=== PATIENT | male | born 1990 | race Caucasian/White ===

== ENCOUNTER 2021-05-21 05:34 | Emergency (ER) | payer SELFPAY ==
[~2021-05-21] VITALS: Ht 172.7 cm; Wt 63.5 kg
[2021-05-21] MEDS ORDERED: ONDANSETRON 4 MG TAB.RAPDIS ONE (06:00)
[2021-05-21] MEDS ORDERED: ONDANSETRON 4 MG TAB.RAPDIS SL ONE (06:00)
[2021-05-21] MEDS ORDERED: LIDOCAINE VISCOUS 2% UD 15 ML UDC MM ONE (06:30)
[2021-05-21] MEDS ORDERED: PANTOPRAZOLE 40 MG VIAL IV ONE (06:30)
[2021-05-21] MEDS ORDERED: MAG HYDROX/AL HYDROX/SIMETH 30 ML UDC PO ONE (06:30)
[2021-05-21] MEDS ORDERED: METOCLOPRAMIDE HCL 10 MG/2 ML VIAL IV ONE (06:30)
[2021-05-21] MEDS ORDERED: DICYCLOMINE HCL INJ 20 MG/2 ML AMPUL IM ONE ×2 (06:30→06:35)
[2021-05-21] MEDS ORDERED: diphenhydrAMINE HCL 50 MG/ML VIAL IV ONE (06:30)
[2021-05-21] MEDS ORDERED: IV NS 0.9% 1,000 ML BAG IV ONE (06:30)
[2021-05-21] MEDS ORDERED: diphenhydrAMINE HCL 50 MG/ML VIAL ONE (06:35)
[2021-05-21] MEDS ORDERED: PANTOPRAZOLE 40 MG VIAL ONE (06:35)
[2021-05-21] MEDS ORDERED: METOCLOPRAMIDE HCL 10 MG/2 ML VIAL ONE (06:35)
[2021-05-21] MEDS ORDERED: LIDOCAINE VISCOUS 2% UD 15 ML UDC ONE (06:35)
[2021-05-21] MEDS ORDERED: MAG HYDROX/AL HYDROX/SIMETH 30 ML UDC ONE (06:35)
[2021-05-21 06:38] LABS: BASOPHILS % (AUTO) 0.1 % (0.0-2.0); HEMATOCRIT 41 % (39-51); LYMPHOCYTES # (AUTO) 0.9 K/uL (0.8-4.8); LYMPHOCYTES % (AUTO) 14.6 % (20.0-44.0); MEAN CORPUSCULAR HGB CONC 34 g/dl (31.0-36.0); MEAN CORPUSCULAR VOLUME 87 fL (80-96); MONOCYTES # (AUTO) 0.8 K/uL (0.1-1.30); MONOCYTES % (AUTO) 12.7 % (2.0-12.0); NEUTROPHILS # (AUTO) 4.5 K/uL (1.8-8.9); NEUTROPHILS % (AUTO) 72.6 % (43.0-81.0); PLATELET COUNT (AUTO) 157 K/uL (150-450); RED BLOOD CELL COUNT(AUTO) 4.74 MIL/uL (4.5-6.0); WHITE BLOOD COUNT (AUTO) 6.2 K/uL (4.3-11.0)
[2021-05-21 07:10] LABS: BILIRUBIN,DIRECT 0.2 mg/dL (0.0-0.2); BILIRUBIN,TOTAL 0.6 mg/dL (0.2-1.0); CALCIUM, SERUM 8.7 mg/dL (8.5-10.1); CREATININE 1.1 mg/dL (0.6-1.3); POTASSIUM 3.3 mmol/L (3.5-5.1); TOTAL PROTEIN, SERUM 7.3 g/dL (6.4-8.2)
--- NOTE | 2021-05-21 07:30 | NUR ---
The patient received in bed. Alert and oriented x4. Denies pain. In room air and denies SOB. Respiration regular and unlabored. Denies nausea/vomiting. VSS. Will continue to monitor the patient.
[2021-05-21] MEDS ORDERED: METO-295 PO (07:35)
--- NOTE | 2021-05-21 07:47 | NUR ---
Patient discharged to home in stable condition. Written and verbal after care instructions given. Patient verbalizes understanding of instruction.
[2021-05-21 07:51] VITALS: BP 107/47
== END 2021-05-21 07:51 | disposition home or self-care (01) ==
LOC: ER 05:35
DX: R11.2 Nausea with vomiting, unspecified (principal); F12.10 Cannabis abuse, uncomplicated; R11.15 Cyclical vomiting syndrome unrelated to migraine
CPT/HCPCS: 36415; 71045; 80048; 80076; 83690; 85025; 96361; 96372; 96374; 96375; 99284; C9113; J0500; J1200; J2765; J7030; Q0162

== ENCOUNTER 2021-05-24 16:10 | Emergency (ER) | payer MEDICAID ==
[~2021-05-24] VITALS: Ht 172.7 cm; Wt 62.6 kg
[~2021-05-24 16:10] MED LIST: METO-295 PO
[2021-05-24] MEDS ORDERED: METOCLOPRAMIDE HCL 10 MG/2 ML VIAL ONE (17:27)
[2021-05-24] MEDS ORDERED: diphenhydrAMINE HCL 50 MG/ML VIAL ONE (17:27)
[2021-05-24] MEDS ORDERED: PANTOPRAZOLE 40 MG VIAL ONE (17:27)
[2021-05-24] MEDS ORDERED: LORAZEPAM INJ 2 MG/ML VIAL ONE (17:28)
[2021-05-24] MEDS ORDERED: LORAZEPAM INJ 2 MG/ML VIAL IV ONE (17:30)
[2021-05-24] MEDS ORDERED: IV NS 0.9% 1,000 ML BAG IV ONE (17:30)
[2021-05-24] MEDS ORDERED: PANTOPRAZOLE 40 MG VIAL IV ONE (17:30)
[2021-05-24] MEDS ORDERED: METOCLOPRAMIDE HCL 10 MG/2 ML VIAL IV ONE (17:30)
[2021-05-24] MEDS ORDERED: diphenhydrAMINE HCL 50 MG/ML VIAL IV ONE (17:30)
[2021-05-24 17:47] LABS: BASOPHILS % (AUTO) 0.3 % (0.0-2.0); EOSINOPHILS % (AUTO) 0.2 % (0.0-6.0); HEMATOCRIT 42 % (39-51); HEMOGLOBIN 14.5 g/dL (13.5-17.5); LYMPHOCYTES # (AUTO) 1.1 K/uL (0.8-4.8); LYMPHOCYTES % (AUTO) 12.9 % (20.0-44.0); MEAN CORPUSCULAR HGB CONC 34 g/dl (31.0-36.0); MEAN CORPUSCULAR VOLUME 86 fL (80-96); MONOCYTES # (AUTO) 0.9 K/uL (0.1-1.30); MONOCYTES % (AUTO) 10.3 % (2.0-12.0); NEUTROPHILS # (AUTO) 6.4 K/uL (1.8-8.9); NEUTROPHILS % (AUTO) 76.3 % (43.0-81.0); PLATELET COUNT (AUTO) 175 K/uL (150-450); RED BLOOD CELL COUNT(AUTO) 4.94 MIL/uL (4.5-6.0); WHITE BLOOD COUNT (AUTO) 8.4 K/uL (4.3-11.0)
--- NOTE | 2021-05-24 17:51 | NUR ---
patient came in to the er c/o nausea vomiting from smoking marijuana, covid +. on room air, breathing evenly and unlabored. Connected to the monitor and pulse ox. kept comfortable, will continue to monitor accordingly.
[2021-05-24 18:06] LABS: CALCIUM, SERUM 8.8 mg/dL (8.5-10.1); CREATININE 1.1 mg/dL (0.6-1.3); POTASSIUM 3.3 mmol/L (3.5-5.1)
[2021-05-24 18:12] LABS: ALBUMIN 4.2 g/dL (3.4-5.0); BILIRUBIN,DIRECT 0.1 mg/dL (0.0-0.2); BILIRUBIN,TOTAL 0.6 mg/dL (0.2-1.0); TOTAL PROTEIN, SERUM 7.9 g/dL (6.4-8.2)
[2021-05-24] MEDS ORDERED: POTASSIUM CHLORIDE 20 MEQ TAB.PRT.SR PO ONE ×2 (18:29→18:30)
[2021-05-24] MEDS ORDERED: DICY10CA37 PO (19:09)
[2021-05-24] MEDS ORDERED: METO-295 PO (19:09)
[2021-05-24 19:17] VITALS: BP 145/88
--- NOTE | 2021-05-24 19:17 | NUR ---
Patient discharged to home in stable condition. Written and verbal after care instructions given. Patient verbalizes understanding of instruction.IV removed. Catheter intact and site benign. Pressure and 4x4 applied to site. No bleeding noted.
== END 2021-05-24 19:17 | disposition home or self-care (01) ==
LOC: ER 16:10
DX: R11.2 Nausea with vomiting, unspecified (principal); F12.10 Cannabis abuse, uncomplicated; E87.6 Hypokalemia; R10.84 Generalized abdominal pain
CPT/HCPCS: 36415; 71045; 80048; 80076; 83690; 85025; 96361; 96374; 96375; 99284; C9113; J1200; J2060; J2765; J7030